=== PATIENT | female | born 1945 | race Caucasian/White ===

== ENCOUNTER 2018-06-19 06:59 | Day surgery (SDC) | payer MEDICARE ==
[2018-06-19] MEDS: NS 1,000 ML IV ×2 (07:30)
[2018-06-19] MEDS ORDERED: LIDOCAINE 2% INJ 100 MG/5 ML SDV (FOR ANES.) As Ordered ×4 (08:14→08:42)
[2018-06-19] MEDS ORDERED: PROPOFOL 200 MG/20 ML VIAL As Ordered ×4 (08:14→08:42)
== END 2018-06-19 09:20 | disposition home or self-care (01) ==
LOC: M OPP 06:59
DX: K64.8 Other hemorrhoids (principal); D12.2 Benign neoplasm of ascending colon; D12.7 Benign neoplasm of rectosigmoid junction; K57.30 Diverticulosis of large intestine without perforation or abscess without bleeding; R19.5 Other fecal abnormalities; I10 Essential (primary) hypertension; Z79.899 Other long term (current) drug therapy; Z78.0 Asymptomatic menopausal state; Z98.51 Tubal ligation status; R06.83 Snoring
CPT/HCPCS: 45385

== ENCOUNTER → 2020-08-07 | Outpatient (CLI) | payer SELFPAY ==
[~2020-08-07] MED LIST: AMLO1TAB24 PO
== END ==
LOC: M LABSMTC 12:49
PROVIDERS: ATTEND Pediatrics
DX: Z20.828 Contact with and (suspected) exposure to other viral communicable diseases (principal)

== ENCOUNTER → 2021-11-27 | Outpatient (REF) | payer MEDICARE | LOC: M SFHCDERM 14:11 | PROVIDERS: ATTEND Dermatology | DX: L90.5 Scar conditions and fibrosis of skin (principal) ==

== ENCOUNTER → 2022-01-03 | Outpatient (CLI) | payer MEDICARE | LOC: M LABSMTC 10:41 | PROVIDERS: ATTEND Anesthesiology | DX: Z01.812 Encounter for preprocedural laboratory examination (principal); Z20.822 Contact with and (suspected) exposure to COVID-19 ==

== ENCOUNTER 2022-01-08 07:07 | Day surgery (SDC) | payer MEDICARE ==
[~2022-01-08] VITALS: Ht 167.6 cm; Wt 73.8 kg
[~2022-01-08 07:07] MED LIST changes: +NS 1,000 ML IV ONE
[2022-01-08] MEDS ORDERED: propofoL 200 MG/20 ML VIAL As Ordered ONE ×2 (08:27→08:30)
[2022-01-08 09:00] VITALS: BP 120/64
== END 2022-01-08 09:13 | disposition home or self-care (01) ==
LOC: M OPP 07:07
PROVIDERS: ATTEND Internal Medicine Gastroenterology
DX: Z12.11 Encounter for screening for malignant neoplasm of colon (principal); Z86.010 Personal history of colon polyps; D12.6 Benign neoplasm of colon, unspecified; K57.30 Diverticulosis of large intestine without perforation or abscess without bleeding; K64.8 Other hemorrhoids; Z79.899 Other long term (current) drug therapy

== ENCOUNTER → 2024-10-05 | Outpatient (CLI) | payer MEDICARE ==
[~2024-10-05] MED LIST changes: -NS 1,000 ML IV ONE
== END ==
LOC: M WUC 10:47
PROVIDERS: ATTEND Nurse Practitioner Family
DX: M17.12 Unilateral primary osteoarthritis, left knee (principal)

== ENCOUNTER → 2025-05-13 | Outpatient (REF) | payer MEDICARE | LOC: M LAB REF 12:38 | PROVIDERS: ATTEND Nurse Practitioner Family | DX: R20.2 Paresthesia of skin (principal) ==